=== PATIENT | female | born 1985 | race Caucasian/White ===

== ENCOUNTER → 2016-06-18 | Outpatient (CLI) | payer BC ==
[~2016-06-18] MED LIST: ALAVERT10 M1 PO; FORTAMET1000 MG PO; RANITIDINE 7575 MG PO
== END ==
LOC: BHSO 11:37
DX: F33.42 Major depressive disorder, recurrent, in full remission (principal)

== ENCOUNTER → 2016-09-10 | Outpatient (CLI) | payer BC | LOC: BHSO 11:38 | DX: F33.41 Major depressive disorder, recurrent, in partial remission (principal) ==

== ENCOUNTER → 2016-12-06 | Outpatient (CLI) | payer BC | LOC: BHSO 11:32 | DX: F33.41 Major depressive disorder, recurrent, in partial remission (principal) ==

== ENCOUNTER → 2017-04-13 | Outpatient (CLI) | payer BC | LOC: BHSO 11:35 | DX: F33.42 Major depressive disorder, recurrent, in full remission (principal) ==

== ENCOUNTER → 2017-06-15 | Outpatient (CLI) | payer BC | LOC: BHSO 11:31 | DX: F33.42 Major depressive disorder, recurrent, in full remission (principal) | CPT/HCPCS: G0463 ==

== ENCOUNTER → 2017-09-14 | Outpatient (CLI) | payer BC | LOC: BHSO 11:42 | DX: F41.0 Panic disorder [episodic paroxysmal anxiety] (principal) | CPT/HCPCS: G0463 ==

== ENCOUNTER → 2018-06-21 | Outpatient (CLI) | payer OTHER ==
[2018-06-21 16:05] LABS: BASO # 0.1 (0.0-0.2); BASO % 0.5 % (0.0-2.0); EOS # 0.5 (0.0-0.7); EOS % 5.1 % (0-4.0); GRAN # 6.5 (1.4-6.5); GRAN % 64.3 % (42.2-75.2); HEMATOCRIT 42.4 % (37.0-47.0); HEMOGLOBIN 14.1 g/dl (12.5-16.0); LYMPH # 2.1 (1.2-3.4); LYMPH % 21.2 % (20.0-51.0); MEAN CELL VOLUME 87 fl (80.0-100.0); MEAN CORPUSCULAR HEMOGLOBIN 29 pg (27.0-31.0); MEAN CORPUSCULAR HGB CONC 33 g/dl (33.0-37.0); MEAN PLATELET VOLUME 9.6 fl (7.4-10.4); MONO # 0.8 (0.1-0.6); MONO % 8.4 % (1.7-9.3); PLATELET COUNT 310 K/mm3 (130-400); RED BLOOD COUNT 4.89 M/mm3 (4.10-5.30); REDCELL DISTRIBUTION WIDTH-CV 11.8 % (11.5-14.5)
== END ==
LOC: COL.RAD 15:42
PROVIDERS: Registered Nurse
DX: R00.2 Palpitations (principal); R07.89 Other chest pain; R06.02 Shortness of breath; R79.89 Other specified abnormal findings of blood chemistry
CPT/HCPCS: Q9967

== ENCOUNTER → 2022-07-21 | Outpatient (CLI) | payer BC | LOC: COL.RAD 13:03 | DX: Z31.41 Encounter for fertility testing (principal) | CPT/HCPCS: Q9967 ==